=== PATIENT | male | born 1955 | race Caucasian/White ===

== ENCOUNTER 2016-08-02 01:21 | Inpatient (IN) | payer OTHER ==
[~2016-08-02] VITALS: Ht 175.3 cm; Wt 125.6 kg
[~2016-08-02 01:21] MED LIST: ASPI-495 PO; FINA5TAB11 PO; FLUT1DIS5 IH; FURO-144 PO; LISI-603 PO; TAMS-12 PO
[2016-08-02] MEDS ORDERED: IPRATROPIUM NEB FS 0.5 MG/2.5 ML AMPUL.NEB ONE (01:54)
[2016-08-02] MEDS ORDERED: ALBUTEROL FS 2.5 MG/3 ML VIAL.NEB ONE (01:54)
--- NOTE | 2016-08-02 01:54 | NUR ---
pt ambulatory w/ steady gait to rm for c/o SOB x 2hrs, tried taking lasix w/ no relief. AOx4, afebrile w/ resp even, bilateral wheezing w/ low O2 sat on RA, NSR, BLE edema, on continuous 3 l/min O2 via NC, pulse-ox w/ cardiac monitoring. Dr. Herrmann at bedside for eval.
[2016-08-02] MEDS ORDERED: methylPREDNISolone SOD SUCC 125 MG/2ML VIAL IV ONE (02:00)
[2016-08-02] MEDS ORDERED: ALBUTEROL FS 2.5 MG/3 ML VIAL.NEB CONTNEB ONE (02:00)
[2016-08-02] MEDS ORDERED: IPRATROPIUM NEB FS 0.5 MG/2.5 ML AMPUL.NEB NEB ONE (02:00)
--- NOTE | 2016-08-02 02:01 | NUR ---
FIELD ADMINISTRATOR at bedside for breathing tx.
--- NOTE | 2016-08-02 02:11 | NUR ---
CXR at bedside.
--- NOTE | 2016-08-02 02:15 | NUR ---
Repeat EKG at bedside.
[2016-08-02] MEDS ORDERED: methylPREDNISolone SOD SUCC 125 MG/2ML VIAL ONE (02:19)
[2016-08-02 02:46] LABS: EOSINOPHILS % (AUTO) 0.1 % (0.0-6.0); HEMATOCRIT 33 % (39-51); HEMOGLOBIN 10.9 g/dL (13.5-17.5); LYMPHOCYTES # (AUTO) 1.1 /CMM (0.8-4.8); LYMPHOCYTES % (AUTO) 8.4 % (20.0-44.0); MEAN CORPUSCULAR HEMOGLOBIN 29 PG (26.0-33.0); MEAN CORPUSCULAR HGB CONC 33 g/dl (31.0-36.0); MEAN CORPUSCULAR VOLUME 88 fL (80-96); MONOCYTES # (AUTO) 0.8 /CMM (0.1-1.30); NEUTROPHILS # (AUTO) 11.5 /CMM (1.8-8.9); NEUTROPHILS % (AUTO) 85.5 % (43.0-81.0); PLATELET COUNT (AUTO) 279 /CMM (150-450); RDW COEFFICIENT OF VARIATION 19.5 (11.5-15.0); RED BLOOD CELL COUNT(AUTO) 3.81 MIL/uL (4.5-6.0); WHITE BLOOD COUNT (AUTO) 13.4 K/uL (4.3-11.0)
[2016-08-02 03:01] LABS: INR 0.93 (0.87-1.13); PROTHROMBIN TIME 9.9 SECS (9.5-12.7)
--- NOTE | 2016-08-02 03:02 | NUR ---
breathing tx complete. pt resting comfortably in bed w/ resp even & unlabored, O2 sat 92% on RA, placed on 2 l/min O2 via NC, on continuous monitoring.
[2016-08-02 03:03] LABS: TROPONIN I 0.065 ng/mL (0.00-0.056)
[2016-08-02 03:11] LABS: ALBUMIN 3.2 g/dL (3.4-5.0); BILIRUBIN,DIRECT 0.1 mg/dL (0.0-0.2); BILIRUBIN,TOTAL 0.3 mg/dL (0.2-1.0); CALCIUM, SERUM 9.2 mg/dL (8.5-10.1); CREATININE 0.9 mg/dL (0.6-1.3); TOTAL PROTEIN, SERUM 6.3 g/dL (6.4-8.2)
[2016-08-02 03:35] LABS: ANISOCYTOSIS 2+; HYPOCHROMASIA 1+; LYMPHOCYTES % (MANUAL) 5 % (16-48); METAMYELOCYTES % 1 % (0-0); MONOCYTES % (MANUAL) 9 % (0-11.0); NEUTROPHILS % (MANUAL) 82 (42-76); PLATELET ESTIMATE ADEQUATE; REACTIVE LYMPHOCYTES 3 % (0-0)
--- NOTE | 2016-08-02 03:47 | NUR ---
RN NOTE RECEIVED REPORT FROM HERMINIA FOR CONTINUITY OF CARE. AWAITING ARRIVAL OF PT.
--- NOTE | 2016-08-02 03:47 | NUR ---
Report given to CHASE Berman for pt admission to [facility] rm [id number].
[2016-08-02] MEDS ORDERED: SPIR25TA4 PO (03:51)
[2016-08-02] MEDS ORDERED: NICO1PAT11 TD (03:51)
--- NOTE | 2016-08-02 04:25 | NUR ---
RN INITIAL REPORT RECEIVED PT IN ACUTE RESPIRATORY DISTRESS. PT IS USING ACCESSORY MUSCLE AND DEEP BREATHES. PT IS ON 2LPM OXYGEN VIA NC AND TOLERATING WELL WITH O2 SAT @ 98%. PT IS A/O X 4 AND ABLE TO MAKE NEEDS KNOWN. PT IS ABLE TO AMBULATE TO BED FROM [facility] WITH A STEADY GAIT. PT IS ON TELE WITH SINUS TACH ON THE MONITOR. PT HAS LISA 22G THAT IS CLEAN DRY INTACT AND PATENT WITH SALINE FLUSH. BED IN LOW LOCK POSITION WITH RIALS UP X 2. CALL LIGHT WITHIN REACH AND ALL SAFETY MEASURES ENSURED AND CARRIED OUT WILL CONTINUE TO MONITOR PT.
[2016-08-02 04:27] VITALS: BP 132/68
[2016-08-02 04:30] VITALS: BP 132/68
[2016-08-02] MEDS ORDERED: SECONDARY IV SET 1 EA INFUS.SET MC ONE (05:52)
[2016-08-02] MEDS ORDERED: IV SET PRIMARY PUMP SET 1 EA INFUS.SET MC ONE (05:52)
[2016-08-02] MEDS ORDERED: IV NS 0.9% 250 ML IV ONE ×2 (05:53→16:13)
[2016-08-02] MEDS ORDERED: ENOXAPARIN SODIUM 40 MG/0.4 ML DISP.SYRIN SQ ONE (05:54)
[2016-08-02] MEDS ORDERED: methylPREDNISolone SOD SUCC 40 MG/ML VIAL ONE (05:54)
[2016-08-02] MEDS ORDERED: FUROSEMIDE 40 MG/4 ML VIAL ONE (05:54)
--- NOTE | 2016-08-02 05:55 | NUR ---
TANA/NOTE SOLU-MEDROL 40 MG GIVEN,SEE D/C MED
[2016-08-02] MEDS ORDERED: ONDANSETRON HCL/PF 4 MG/2 ML VIAL IVP PRN (06:00)
[2016-08-02] MEDS ORDERED: methylPREDNISolone SOD SUCC 125 MG/2ML VIAL IV SCH (06:00)
[2016-08-02] MEDS ORDERED: MAG HYDROX/AL HYDROX/SIMETH 30 ML UDC PO PRN (06:00)
[2016-08-02] MEDS ORDERED: Z GUARD REMEDY 2 OZ OINT TP PRN (06:00)
[2016-08-02] MEDS ORDERED: ZOLPIDEM TARTRATE 5 MG TABLET PO PRN (06:00)
[2016-08-02] MEDS ORDERED: ENOXAPARIN SODIUM 40 MG/0.4 ML DISP.SYRIN SQ SCH (06:00)
[2016-08-02] MEDS ORDERED: NITROGLYCERIN 0.4 MG/TAB BOTTLE SL PRN (06:00)
[2016-08-02] MEDS ORDERED: MORPHINE SULFATE INJ 2 MG/ML DISP.SYRIN IV PRN (06:00)
[2016-08-02] MEDS ORDERED: FUROSEMIDE 40 MG/4 ML VIAL IV SCH ×2 (06:00→17:00)
--- NOTE | 2016-08-02 07:27 | NUR ---
RN CLOSING NOTE PT REMAINS IN NO ACUTE DISTRESS IN BED. PT DID NOT HAVE ANY SIGNIFICANT CHANGE IN CONDITION DURING SHIFT. PT REMAINS @ 98% ON 2LPM O2 VIA NC. AND TOLERATING WELL. PT CARE ENDORSED TO AM RN FOR CONTINUITY OF CARE.
[2016-08-02] MEDS ORDERED: methylPREDNISolone SOD SUCC 40 MG/ML VIAL IV SCH (07:34)
[2016-08-02] MEDS: IPRATROPIUM NEB FS 0.5 MG/2.5 ML AMPUL.NEB NEB PRN ×2 (07:58→12:17)
[2016-08-02] MEDS: ALBUTEROL FS 2.5 MG/0.5 ML VIAL.NEB NEB PRN ×2 (07:58→12:18)
[2016-08-02 08:00] VITALS: BP 118/60
[2016-08-02] MEDS: ASPIRIN EC 81 MG TABLET.DR PO SCH (08:14)
[2016-08-02] MEDS: PANTOPRAZOLE 40 MG TABLET.DR PO SCH (08:14)
[2016-08-02] MEDS: LEVOFLOXACIN 750 MG /D5W 150ML 750 MG in PREMIX 1 EA IV SCH (08:14)
[2016-08-02] MEDS: HYDROCODONE/APAP 5/325MG 1 EACH TABLET PO PRN ×3 (08:15→18:04)
[2016-08-02] MEDS: NICOTINE PATCH (14MG) 14 MG PATCH.TD24 TD SCH (08:16)
[2016-08-02] MEDS: TAMSULOSIN 0.4 MG CAP.SR.24H PO SCH (08:16)
[2016-08-02] MEDS: LISINOPRIL (20MG) 20 MG TABLET PO SCH (08:16)
[2016-08-02] MEDS: FINASTERIDE (5 MG) 5 MG TABLET PO SCH (08:16)
[2016-08-02] MEDS ORDERED: ASPIRIN EC 81 MG TABLET.DR PO SCH (09:00)
[2016-08-02] MEDS ORDERED: ASPIRIN EC 325 MG TABLET.DR PO ONE (09:30)
[2016-08-02 12:00] VITALS: BP 122/66
[2016-08-02] MEDS: methylPREDNISolone SOD SUCC 40 MG/ML VIAL IV SCH ×2 (13:44→18:05)
[2016-08-02] MEDS: ALBUTEROL FS 2.5 MG/0.5 ML VIAL.NEB NEB SCH ×3 (15:17→23:33)
[2016-08-02] MEDS: IPRATROPIUM NEB FS 0.5 MG/2.5 ML AMPUL.NEB NEB SCH ×3 (15:17→23:33)
[2016-08-02 15:43] LABS: CALCIUM, SERUM 8.8 mg/dL (8.5-10.1); CREATININE 0.7 mg/dL (0.6-1.3); POTASSIUM 4.4 mmol/L (3.5-5.1)
[2016-08-02 16:00] VITALS: BP 117/57
[2016-08-02] MEDS ORDERED: IOHEXOL-350 100 ML VIAL IV ONE (16:13)
[2016-08-02] MEDS: FUROSEMIDE 40 MG/4 ML VIAL IV SCH (16:53)
[2016-08-02] MEDS: MAGNESIUM HYDROXIDE 30 ML UDC PO PRN (18:13)
--- NOTE | 2016-08-02 19:40 | NUR ---
RN INITIAL NOTE PT ON THE BED SITTING WITHOUT ANY DISTRESS . A/O X 4 , ABLE TO VERBALIZE NEEDS . BREATHING EVEN AND UNLABORED AT THIS TIME, SATING 95% ON ROOM AIR. SHOWING SR 90s , ELEVATED T WAVE , WITH OCCASIONALLY PVCs ON TELE MONITOR . LISA MIDLINE INTACT AND PATENT . VERBALIZED PAIN WITHIN TOLERABLE LEVEL . CONTINENT TO BOWEL/BLADDER HABIT. BED IN THE LOWEST/LOCKED POSITION. SAFETY MEASURES APPLIED. WILL CONTINUE TO MONITOR .
[2016-08-02 20:00] VITALS: BP 106/64
[2016-08-02] MEDS: ACETAMINOPHEN 325 MG TABLET PO PRN (20:28)
[2016-08-02] MEDS: SIMVASTATIN 20 MG TABLET PO SCH (21:29)
[2016-08-03] VITALS: BP 124/81
[2016-08-03] MEDS: methylPREDNISolone SOD SUCC 40 MG/ML VIAL IV SCH ×5 (00:16→22:58)
[2016-08-03] MEDS: HYDROCODONE/APAP 5/325MG 1 EACH TABLET PO PRN ×4 (00:20→20:14)
--- NOTE | 2016-08-03 00:21 | NUR ---
RN NOTE; PRN NORCO 5/325 MG GIVEN FOR BACKACHE 09/30 , TOLERATED AT THIS TIME , WILL CONTINUE TO MONITOR
[2016-08-03] MEDS: ALBUTEROL FS 2.5 MG/0.5 ML VIAL.NEB NEB SCH ×7 (03:26→23:44)
[2016-08-03] MEDS: IPRATROPIUM NEB FS 0.5 MG/2.5 ML AMPUL.NEB NEB SCH ×7 (03:26→23:44)
[2016-08-03 04:00] VITALS: BP 110/66
--- NOTE | 2016-08-03 05:35 | NUR ---
RN NOTE; PRN NORCO 5/325 MG GIVEN FOR BACKACHE 09/30 , TOLERATED AT THIS TIME , WILL CONTINUE TO MONITOR
[2016-08-03 06:56] LABS: HEMATOCRIT 31 % (39-51); HEMOGLOBIN 10.2 g/dL (13.5-17.5); LYMPHOCYTES # (AUTO) 0.4 /CMM (0.8-4.8); LYMPHOCYTES % (AUTO) 2.9 % (20.0-44.0); MEAN CORPUSCULAR HEMOGLOBIN 29 PG (26.0-33.0); MEAN CORPUSCULAR HGB CONC 33 g/dl (31.0-36.0); MEAN CORPUSCULAR VOLUME 88 fL (80-96); MONOCYTES # (AUTO) 0.6 /CMM (0.1-1.30); MONOCYTES % (AUTO) 4.1 % (2.0-12.0); NEUTROPHILS # (AUTO) 14.3 /CMM (1.8-8.9); PLATELET COUNT (AUTO) 267 /CMM (150-450); RDW COEFFICIENT OF VARIATION 19.8 (11.5-15.0); RED BLOOD CELL COUNT(AUTO) 3.56 MIL/uL (4.5-6.0); WHITE BLOOD COUNT (AUTO) 15.4 K/uL (4.3-11.0)
[2016-08-03 07:07] LABS: THYROID STIMULATING HORMONE 0.315 uIU/mL (0.358-3.74)
[2016-08-03 07:11] LABS: CALCIUM, SERUM 9.1 mg/dL (8.5-10.1); MAGNESIUM 2.8 mg/dL (1.8-2.4); PHOSPHORUS 3.7 mg/dL (2.5-4.9); POTASSIUM 4.6 mmol/L (3.5-5.1)
--- NOTE | 2016-08-03 07:21 | NUR ---
RN EOS NOTE; PT REMAINED STABLE DURING THE SHIFT. NO SOB .ALL NEEDS ATTENDED PROMPTLY. ENDORSED TO NEXT SHIFT RN FOR CONTINUITY OF CARE .
[2016-08-03 08:00] VITALS: BP 112/54
[2016-08-03] MEDS: LEVOFLOXACIN 750 MG /D5W 150ML 750 MG in PREMIX 1 EA IV SCH (08:20)
[2016-08-03] MEDS: NICOTINE PATCH (14MG) 14 MG PATCH.TD24 TD SCH (08:20)
[2016-08-03] MEDS: ASPIRIN EC 81 MG TABLET.DR PO SCH (08:20)
[2016-08-03] MEDS: TAMSULOSIN 0.4 MG CAP.SR.24H PO SCH (08:21)
[2016-08-03] MEDS: PANTOPRAZOLE 40 MG TABLET.DR PO SCH (08:21)
[2016-08-03] MEDS: FUROSEMIDE 40 MG/4 ML VIAL IV SCH ×2 (08:21→16:03)
[2016-08-03] MEDS: FINASTERIDE (5 MG) 5 MG TABLET PO SCH (08:21)
[2016-08-03] MEDS: LISINOPRIL (20MG) 20 MG TABLET PO SCH (08:22)
[2016-08-03] MEDS: ENOXAPARIN SODIUM 40 MG/0.4 ML DISP.SYRIN SQ SCH (08:22)
[2016-08-03] MEDS: MAGNESIUM HYDROXIDE 30 ML UDC PO PRN (08:36)
[2016-08-03 12:00] VITALS: BP 87/48
--- NOTE | 2016-08-03 12:39 | NUR ---
rn notes pt seen aND ASSESSED BY DR PERKINS; INFORMED PT RE POC. AWARE RE BLE SWELLING; ENCOURAGED PT TO ELEVATE SITE BUT WITH NONCOMPLIANCE
--- NOTE | 2016-08-03 12:41 | NUR ---
RN NOTES DR PERKINS WITH COMPRESSION STOCKING ORDER
[2016-08-03] MEDS ORDERED: POLYETHYLENE GLYCOL 3350 17 GM POWD.PACK PO PRN (15:30)
[2016-08-03 16:00] VITALS: BP 120/76
[2016-08-03] MEDS: MORPHINE SULFATE INJ 2 MG/ML DISP.SYRIN IV PRN ×2 (16:08→23:13)
[2016-08-03] MEDS: FLUTICASONE/SALMETEROL 1 DISK IH SCH (16:14)
--- NOTE | 2016-08-03 18:41 | NUR ---
RN CLOSING NOTES NO SIGNIFICANT CHANGES NOTED. BLE STILL SWOLLEN, ENCOURAGED OT TO KEEP IT ELEVATED. ALL MEDS GIVEN. WILL ENDORSE TO EXT SHIFT FOR CONTINUITY OF CARE IN STABLE CONDITION
[2016-08-03 20:00] VITALS: BP 105/59
[2016-08-03] MEDS: SIMVASTATIN 20 MG TABLET PO SCH (22:58)
[2016-08-04] VITALS: BP 118/71
[2016-08-04] MEDS: ALBUTEROL FS 2.5 MG/0.5 ML VIAL.NEB NEB SCH ×6 (03:35→22:57)
[2016-08-04] MEDS: IPRATROPIUM NEB FS 0.5 MG/2.5 ML AMPUL.NEB NEB SCH ×6 (03:35→22:57)
[2016-08-04 04:00] VITALS: BP 117/78
[2016-08-04] MEDS: HYDROCODONE/APAP 5/325MG 1 EACH TABLET PO PRN ×4 (04:08→23:57)
[2016-08-04] MEDS: methylPREDNISolone SOD SUCC 40 MG/ML VIAL IV SCH ×4 (06:14→23:56)
[2016-08-04 06:52] LABS: BASOPHILS % (AUTO) 0.1 % (0.0-2.0); HEMATOCRIT 33 % (39-51); HEMOGLOBIN 10.8 g/dL (13.5-17.5); LYMPHOCYTES # (AUTO) 0.4 /CMM (0.8-4.8); LYMPHOCYTES % (AUTO) 2.2 % (20.0-44.0); MEAN CORPUSCULAR HEMOGLOBIN 29 PG (26.0-33.0); MEAN CORPUSCULAR HGB CONC 33 g/dl (31.0-36.0); MEAN CORPUSCULAR VOLUME 88 fL (80-96); MONOCYTES # (AUTO) 0.5 /CMM (0.1-1.30); MONOCYTES % (AUTO) 2.8 % (2.0-12.0); NEUTROPHILS # (AUTO) 17.5 /CMM (1.8-8.9); NEUTROPHILS % (AUTO) 94.9 % (43.0-81.0); PLATELET COUNT (AUTO) 284 /CMM (150-450); RDW COEFFICIENT OF VARIATION 19.4 (11.5-15.0); RED BLOOD CELL COUNT(AUTO) 3.76 MIL/uL (4.5-6.0); WHITE BLOOD COUNT (AUTO) 18.4 K/uL (4.3-11.0)
--- NOTE | 2016-08-04 07:00 | NUR ---
RN NOTES PT AWAKE AND ORIENTED, DENIES PAIN AT THIS TIME. UP IN CHAIR FOR BREAKFAST. NOTED WITH EDEMA OF BLE , ENCOURAGED TO KEEP EXT ELEVATED. REMAINS ON O2 INH VIA NC. NO SOB NOTED. SINUS RHYTHM ON THE MONITOR. WILL MONITOR ACCORDINGLY.
[2016-08-04 07:20] LABS: CALCIUM, SERUM 9.2 mg/dL (8.5-10.1); CREATININE 0.9 mg/dL (0.6-1.3); MAGNESIUM 2.8 mg/dL (1.8-2.4); PHOSPHORUS 3.5 mg/dL (2.5-4.9); POTASSIUM 4.9 mmol/L (3.5-5.1)
[2016-08-04 08:00] VITALS: BP 143/83
[2016-08-04] MEDS: MORPHINE SULFATE INJ 2 MG/ML DISP.SYRIN IV PRN ×2 (08:02→21:07)
[2016-08-04] MEDS: NICOTINE PATCH (14MG) 14 MG PATCH.TD24 TD SCH (08:04)
[2016-08-04] MEDS: ENOXAPARIN SODIUM 40 MG/0.4 ML DISP.SYRIN SQ SCH (08:05)
[2016-08-04] MEDS: FUROSEMIDE 40 MG/4 ML VIAL IV SCH ×2 (08:06→17:29)
[2016-08-04] MEDS: PANTOPRAZOLE 40 MG TABLET.DR PO SCH (08:06)
[2016-08-04] MEDS: LISINOPRIL (20MG) 20 MG TABLET PO SCH (08:06)
[2016-08-04] MEDS: ASPIRIN EC 81 MG TABLET.DR PO SCH (08:06)
[2016-08-04] MEDS: FINASTERIDE (5 MG) 5 MG TABLET PO SCH (08:06)
[2016-08-04] MEDS: TAMSULOSIN 0.4 MG CAP.SR.24H PO SCH (08:06)
[2016-08-04] MEDS: FLUTICASONE/SALMETEROL 1 DISK IH SCH ×2 (08:07→17:28)
[2016-08-04] MEDS: LEVOFLOXACIN 750 MG /D5W 150ML 750 MG in PREMIX 1 EA IV SCH (08:09)
[2016-08-04 09:12] LABS: BAND % (MANUAL) 2 % (0.0-5.0); LYMPHOCYTES % (MANUAL) 1 % (16-48); MONOCYTES % (MANUAL) 7 % (0-11.0); MYELOCYTES % 4 % (0-0); NEUTROPHILS % (MANUAL) 86 (42-76)
[2016-08-04 09:17] LABS: ANISOCYTOSIS 1+; PLATELET ESTIMATE ADEQUATE
[2016-08-04] MEDS: MAGNESIUM HYDROXIDE 30 ML UDC PO PRN (10:08)
[2016-08-04] MEDS ORDERED: FUROSEMIDE 20 MG/2 ML VIAL IV ONE (10:30)
[2016-08-04 16:00] VITALS: BP 121/71
--- NOTE | 2016-08-04 19:30 | NUR ---
RN INITIAL NOTES PT IS SITTING UP IN BED, NO ACUTE DISTRESS NOTED, A/O X4, ABLE TO MAKE NEEDS NO KNOWN, PT AMBULATORY, ASSIST PT WITH ADL WITH MINIMAL ASSIST. USES URINAL, BRP. LISA MIDLINE IS FLUSHED AND PATENT. SIDERAILS UP, BED LOCKED IN AND LOWEST POSITION, CALL LIGHT WITHIN REACH.
[2016-08-04 20:00] VITALS: BP 122/81
--- NOTE | 2016-08-04 20:22 | NUR ---
ALL [facility] MEDS CLEARED FOR PT SAFETY
[2016-08-04] MEDS: SIMVASTATIN 20 MG TABLET PO SCH (21:01)
[2016-08-05] MEDS: MORPHINE SULFATE INJ 2 MG/ML DISP.SYRIN IV PRN ×3 (03:40→17:06)
[2016-08-05] MEDS: ALBUTEROL FS 2.5 MG/0.5 ML VIAL.NEB NEB SCH ×6 (03:59→22:58)
[2016-08-05] MEDS: IPRATROPIUM NEB FS 0.5 MG/2.5 ML AMPUL.NEB NEB SCH ×6 (03:59→22:58)
[2016-08-05 04:00] VITALS: BP 124/84
[2016-08-05] MEDS: HYDROCODONE/APAP 5/325MG 1 EACH TABLET PO PRN (05:43)
[2016-08-05] MEDS: methylPREDNISolone SOD SUCC 40 MG/ML VIAL IV SCH ×3 (05:45→17:06)
--- NOTE | 2016-08-05 05:46 | NUR ---
RN NOTES PT REFUSED SOLU-MEDROL, EXPLAINED THE RISK AND BENEFITS OF TAKING THE MEDICATION, PT STILL REFUSED.
[2016-08-05 06:41] LABS: HEMATOCRIT 35 % (39-51); HEMOGLOBIN 11.5 g/dL (13.5-17.5); LYMPHOCYTES # (AUTO) 0.3 /CMM (0.8-4.8); LYMPHOCYTES % (AUTO) 1.8 % (20.0-44.0); MEAN CORPUSCULAR HEMOGLOBIN 29 PG (26.0-33.0); MEAN CORPUSCULAR HGB CONC 33 g/dl (31.0-36.0); MEAN CORPUSCULAR VOLUME 88 fL (80-96); MONOCYTES # (AUTO) 0.6 /CMM (0.1-1.30); MONOCYTES % (AUTO) 3.7 % (2.0-12.0); NEUTROPHILS # (AUTO) 15.9 /CMM (1.8-8.9); NEUTROPHILS % (AUTO) 94.5 % (43.0-81.0); PLATELET COUNT (AUTO) 266 /CMM (150-450); RDW COEFFICIENT OF VARIATION 19.3 (11.5-15.0); RED BLOOD CELL COUNT(AUTO) 3.99 MIL/uL (4.5-6.0); WHITE BLOOD COUNT (AUTO) 16.8 K/uL (4.3-11.0)
--- NOTE | 2016-08-05 07:00 | NUR ---
RN NOTES RECEIVED PT ON BED, SITTING UP ON THE BED, A/OX4, AMBULATORY WITH ASSIST , RESPIRATION EVEN AND UNLABORED, BESSIE SOB, L UA MIDLINE IS FLUSHED AND PATENT. SIDE RAILS UP x3, CALL LIGHT WITHIN EASY REACH , BED LOCKED IN AND LOWEST POSITION. CONTINUE TO MONITOR PT CLOSELY AND NOTIFY MD FOR ANY SIGNIFICANT CHANGES.
--- NOTE | 2016-08-05 07:06 | NUR ---
RN CLOSING NOTES NO SIGNIFICANT CHANGES OVERNIGHT, NO C/O SOB OR CHEST PAIN, ASSISTED PT WITH ADLS WITH MINIMAL ASSIST, LISA MIDLINE PATENT, NO S/SX OF INFECTION OR INFILTRATION NOTED. PT REFUSED SOLUMEDROL OTHERWISE ALL MEDS WERE GIVEN AND PT TOLERATED IT WELL. ALL NEEDS MET, ALL SAFETY MEASURES MAINTAINED, ENDORSED TO THE AM NURSE. CALL LIGHTS WITHIN REACH.
[2016-08-05 07:15] LABS: CALCIUM, SERUM 9.3 mg/dL (8.5-10.1); PHOSPHORUS 3.9 mg/dL (2.5-4.9); POTASSIUM 4.6 mmol/L (3.5-5.1)
[2016-08-05 08:00] VITALS: BP 150/92
[2016-08-05] MEDS: LEVOFLOXACIN 750 MG /D5W 150ML 750 MG in PREMIX 1 EA IV SCH (08:01)
[2016-08-05] MEDS: ASPIRIN EC 81 MG TABLET.DR PO SCH (08:02)
[2016-08-05] MEDS: NICOTINE PATCH (14MG) 14 MG PATCH.TD24 TD SCH (08:02)
[2016-08-05] MEDS: PANTOPRAZOLE 40 MG TABLET.DR PO SCH (08:02)
[2016-08-05] MEDS: FUROSEMIDE 40 MG/4 ML VIAL IV SCH ×2 (08:02→17:00)
[2016-08-05] MEDS: LISINOPRIL (20MG) 20 MG TABLET PO SCH (08:03)
[2016-08-05] MEDS: TAMSULOSIN 0.4 MG CAP.SR.24H PO SCH (08:03)
[2016-08-05] MEDS: FINASTERIDE (5 MG) 5 MG TABLET PO SCH (08:03)
[2016-08-05] MEDS: ENOXAPARIN SODIUM 40 MG/0.4 ML DISP.SYRIN SQ SCH (08:04)
[2016-08-05] MEDS: FLUTICASONE/SALMETEROL 1 DISK IH SCH ×2 (08:07→17:06)
[2016-08-05 09:06] LABS: ANISOCYTOSIS 3+; BAND % (MANUAL) 4 % (0.0-5.0); BASOPHILS % (MANUAL) 1 % (0.0-2.0); LYMPHOCYTES % (MANUAL) 2 % (16-48); MONOCYTES % (MANUAL) 8 % (0-11.0); NEUTROPHILS % (MANUAL) 85 (42-76); PLATELET ESTIMATE ADEQUATE
--- NOTE | 2016-08-05 12:00 | NUR ---
RN NOTES PT SITTING UP ON A CHAIR ,STABLE , NO DISTRESS NOTED,
[2016-08-05] MEDS: MAGNESIUM HYDROXIDE 30 ML UDC PO PRN (12:26)
[2016-08-05 16:00] VITALS: BP 112/76
--- NOTE | 2016-08-05 18:43 | NUR ---
RN NOTES RESPIRATION EVEN AND UNLABORED, BESSIE ANY DISTRESS , MEDICATED PER MD ORDER , NO SIGNIFICANT CHANGES NOTED ON THIS SHIFT.
--- NOTE | 2016-08-05 19:25 | NUR ---
RN INITIAL NOTES PT IS IN BED, NO RESPIRATORY DISTRESS NOTED, A/O X4, PT AMBULATORY, ASSIST PT WITH ADL WITH MINIMAL ASSIST. USES URINAL, BRP. LISA MIDLINE IS FLUSHED AND PATENT. SIDE RAILS UP, BED LOCKED IN AND LOWEST POSITION, CALL LIGHT WITHIN REACH.
[2016-08-05 20:00] VITALS: BP 99/56
[2016-08-05] MEDS: ACETAMINOPHEN 325 MG TABLET PO PRN (20:08)
[2016-08-05] MEDS: SIMVASTATIN 20 MG TABLET PO SCH (21:39)
[2016-08-05] MEDS: TRAMADOL HCL 50 MG TABLET PO PRN (22:57)
[2016-08-05] MEDS ORDERED: TRAMADOL HCL 50 MG TABLET PO PRN (23:00)
--- NOTE | 2016-08-05 23:10 | NUR ---
RN NOTES SPOKE WITH DR NOBLE, ULTRAM 50MG Q6H PRN WAS ORDERED FOR MODERATE PAIN, AND D/C NORCO 5/325.
--- NOTE | 2016-08-06 00:05 | NUR ---
RN NOTES PT REFUSED SOLUMEDROL, EXPLAINED THE RISK AND BENEFITS OF THE MEDICATION AND PT STILL REFUSED.
[2016-08-06] MEDS: IPRATROPIUM NEB FS 0.5 MG/2.5 ML AMPUL.NEB NEB SCH ×3 (03:30→11:20)
[2016-08-06] MEDS: ALBUTEROL FS 2.5 MG/0.5 ML VIAL.NEB NEB SCH ×3 (03:30→11:20)
[2016-08-06 04:00] VITALS: BP 107/58
[2016-08-06] MEDS ORDERED: TRAMADOL HCL 50 MG TABLET ONE (04:33)
[2016-08-06] MEDS: methylPREDNISolone SOD SUCC 40 MG/ML VIAL IV SCH ×3 (06:00→12:00)
--- NOTE | 2016-08-06 06:59 | NUR ---
RN CLOSING NOTES NO SIGNIFICANT CHANGES OVERNIGHT, NO C/O SOB OR CHEST PAIN, LISA MIDLINE PATENT, NO S/SX OF INFECTION OR INFILTRATION NOTED. NO NEW SKIN BREAKDOWN, ENCOURAGE PT OF SELF CARE. ALL NEEDS MET, ALL SAFETY MEASURES MAINTAINED, WILL ENDORSE TO THE AM NURSE FOR CONTINUATION OF CARE. CALL LIGHTS WITHIN REACH.
[2016-08-06 08:00] VITALS: BP_SYST 108; BP_SYST 113; BP_DIAS 45; BP_DIAS 80
[2016-08-06] MEDS: LEVOFLOXACIN 750 MG /D5W 150ML 750 MG in PREMIX 1 EA IV SCH (08:08)
[2016-08-06] MEDS: ASPIRIN EC 81 MG TABLET.DR PO SCH (08:10)
[2016-08-06] MEDS: FUROSEMIDE 40 MG/4 ML VIAL IV SCH (08:10)
[2016-08-06] MEDS: NICOTINE PATCH (14MG) 14 MG PATCH.TD24 TD SCH (08:10)
[2016-08-06] MEDS: FLUTICASONE/SALMETEROL 1 DISK IH SCH (08:10)
[2016-08-06 08:11] VITALS: BP 113/80
[2016-08-06] MEDS: PANTOPRAZOLE 40 MG TABLET.DR PO SCH (08:11)
[2016-08-06] MEDS: LISINOPRIL (20MG) 20 MG TABLET PO SCH (08:11)
[2016-08-06] MEDS: TAMSULOSIN 0.4 MG CAP.SR.24H PO SCH (08:11)
[2016-08-06] MEDS: FINASTERIDE (5 MG) 5 MG TABLET PO SCH (08:11)
[2016-08-06] MEDS: ENOXAPARIN SODIUM 40 MG/0.4 ML DISP.SYRIN SQ SCH (08:12)
[2016-08-06] MEDS: ACETAMINOPHEN 325 MG TABLET PO PRN (08:20)
[2016-08-06] MEDS: TRAMADOL HCL 50 MG TABLET PO PRN (09:30)
--- NOTE | 2016-08-06 13:30 | NUR ---
discharge note patient left in stable condition accompanied in wheelchair with charge nurse. LISA midline removed, no bleeding noted 30 min before leaving. patient denies SOB, denies chest pain, denies dizziness. vital signs check before leaving and wnl. detailed education regarding dx, risks and medication provided to patient and written given. verbalized understanding. instructed to call 911 in case of emergency/ need. Aramis Schultz wrote prescriptions, handed to patient. photos of bruising taken and in chart. patient refused vaccination, said does not believe it will work. belongings checked and confirmed with patient having all belongings. discharge paper work signs and copied in chart. patient left via private car to patients chosen destination with confirmed address.
== END 2016-08-06 13:00 | disposition home or self-care (01) | DRG 194 ==
LOC: ER 01:27 → TELE1 03:58 → MEDSG1 08-04 10:15
PROVIDERS: ADMIT Internal Medicine; ATTEND Internal Medicine
PROC: 05H633Z Insertion of Infusion Device into Left Subclavian Vein, Percutaneous Approach (ICD-10-PCS; principal; 2016-08-02)
DX: I11.0 Hypertensive heart disease with heart failure (principal); J18.9 Pneumonia, unspecified organism; D68.59 Other primary thrombophilia; R53.2 Functional quadriplegia; J44.0 Chronic obstructive pulmonary disease with (acute) lower respiratory infection; E87.1 Hypo-osmolality and hyponatremia; I50.43 Acute on chronic combined systolic (congestive) and diastolic (congestive) heart failure; J44.1 Chronic obstructive pulmonary disease with (acute) exacerbation; F17.210 Nicotine dependence, cigarettes, uncomplicated; G47.33 Obstructive sleep apnea (adult) (pediatric); E66.9 Obesity, unspecified; G89.29 Other chronic pain; M54.5 Low back pain; I87.8 Other specified disorders of veins; J20.9 Acute bronchitis, unspecified
CPT/HCPCS: 36415; 36569; 71010-TC; 80048-TC; 80061-TC; 80076-TC; 83605-TC; 83735-TC; 83880; 84100-TC; 84443-TC; 84484-TC; 85025-TC; 85730-TC; 87040-TC; 87081-TC; 93307-TC; 93970-TC; 94799-TC; 97001-TC; A4216; A4606; J1650; J1940; J1956; J2270; J2920; J2930; J7050; Q9967; Z7610